=== PATIENT | male | born 1950 | race American Indian/Alaskan Native ===

== ENCOUNTER 2019-03-10 09:55 | Inpatient (IN) | payer MEDICARE ==
[~2019-03-10] VITALS: Ht 170.2 cm; Wt 62.1 kg
[~2019-03-10 09:55] MED LIST: ACEBUTCAFT PO; ALBU90OI INH; AMIT25 PO; ASPI81EC PO; Amitriptyline150 MG PO; CITA20 PO; CLON.2 PO; DIPATR PO; ESOM20 PO; FLUSAL2505 IH; HYDACE5 PO; HYDCHL12.5 PO; HYDCHL25 PO; Hydrocodone-Ap1 EA20 PO; INDO50 PO; ISOMON30 PO; KETO10 PO; LORA1 PO; LORA2 PO; Lopressor 25 mg25 MG PO; METF500 PO; METO100 PO; METO25ER PO; MORP15ER PO; MORP20L PO; MORP30ER PO; MORP60ER PO; NITR.3SL SL; OMEP20ER PO; OXYACE5T PO; OXYACE7.5T PO; PROC5 PO; PROM25 PO; Prinivil10 MG PO; RXDIPATR PO; RXHYDACE PO; RXLORA1 PO; RXOXYACE PO; RXPROM25 PO; SERT100 PO; SERT50 PO; TIOT18 IH; ZYRTEC
[2019-03-10] MEDS ORDERED: Norco 10-325 T1 EACH PO (10:17)
[2019-03-10 10:52] LABS: Ethanol (Alcohol), Blood, Med <3 mg/dL; Salicylate 7.4 mg/dL (2.8-20.0)
[2019-03-10 10:52] LABS: BASOPHILS ABSOLUTE AUTO 0.03 K/mm3 (0.00-0.23); BASOPHILS PERCENT AUTO 1 % (0-2); EOSINOPHILS ABSOLUTE AUTO 0.07 K/mm3 (0.00-0.68); EOSINOPHILS PERCENT AUTO 1 % (0-6); Hematocrit 44.3 % (37.0-53.0); Hemoglobin 14.9 g/dL (13.5-17.5); IMMATURE GRAN ABSOLUTE AUTO 0.01 K/mm3 (0.00-0.10); IMMATURE GRAN PERCENT AUTO 0 % (0-1); LYMPHOCYTES ABSOLUTE AUTO 2.46 K/mm3 (0.84-5.20); LYMPHOCYTES PERCENT AUTO 38 % (21-46); MONOCYTES ABSOLUTE AUTO 0.55 K/mm3 (0.16-1.47); MONOCYTES PERCENT AUTO 8 % (4-13); Mean Corpuscular HGB 31.8 pg (26.0-34.0); Mean Corpuscular HGB Conc 33.6 g/dL (31.5-36.5); Mean Corpuscular Volume 95 fL (80-100); Mean Platelet Volume 11.3 fL (9.1-12.4); NEUTROPHILS ABSOLUTE AUTO 3.43 K/mm3 (1.96-9.15); NEUTROPHILS PERCENT AUTO 52 % (41-73); Platelet Count 291 K/mm3 (150-400); RDW Coefficient Variation 12.7 % (11.7-14.2); RDW Standard Deviation 43.7 fL (35.1-46.3); Red Blood Cell Count 4.69 M/mm3 (4.30-5.90); White Blood Cell Count 6.55 K/mm3 (4.00-11.30)
[2019-03-10 10:56] LABS: Alanine Aminotransfer (ALT/SGP 14 U/L (12-78); Albumin, Blood 4.3 g/dL (3.4-5.0); Albumin/Globulin Ratio 1.1 (0.8-1.8); Alk Phos 79 U/L (50-136); Anion Gap 10 mmol/L (6-16); Aspartate Aminotrans (AST/SGOT 25 U/L (12-37); Bilirubin, Total 0.5 mg/dL (0.1-1.0); Blood Urea Nitrogen 20 mg/dL (8-24); Bun/Creatinine Ratio 16.3 (12.0-20.0); CO2, Blood 24 mmol/L (21-32); Calcium, Blood 9.6 mg/dL (8.5-10.1); Chloride, Blood 103 mmol/L (98-108); Creatinine, Blood 1.23 mg/dL (0.60-1.20); Globulin, Blood 3.9 g/dL (2.2-4.0); Glomerular Filtration Rate >60 (60-); Glucose, Blood 118 mg/dL (70-99); Potassium, Blood 4.2 mmol/L (3.5-5.5); Sodium, Blood 137 mmol/L (136-145); Thyroid Stimulating Hormone 0.264 uIU/mL (0.360-4.800); Total Protein, Blood 8.2 g/dL (6.4-8.2)
[2019-03-10 11:01] LABS: Acetaminophen, Random <2.0 ug/mL (10.0-30.0)
[2019-03-10] MEDS ORDERED: ALBU90OI61 INH (13:31)
[2019-03-10 14:48] LABS: Source, Urine Clean Catch
[2019-03-10 14:53] LABS: Appearance, Urine Clear (Clear); Bilirubin, Urine Neg (Neg); Blood, Urine Neg (Neg); Color, Urine Yellow (P-Yellow); Glucose Qualitative, Urine Neg (Neg); Ketones, Urine 1+ (Neg); Leukocyte Esterase, Urine Neg (Neg); Nitrite, Urine Neg (Neg); Protein, Urine Neg (Neg); Urobilinogen, Urine NORM (Normal)
--- NOTE | 2019-03-10 16:00 | NUR ---
ARRIVAL TO ICU 1505- PT ARRIVES TO ICU AT THIS TIME. HE IS OBTUNDED AND UNABLE TO COMMUNICATE. SNORING. WHEN STIMULATED WITH PAIN, HE SWINGS ARMS AROUND. BUE RESTRAINED TO KEEP PT FROM PULLING ON LINES AND ATTEMPTING TO GET OUT OF BED OR SWING AT STAFF. [place], HR 100-120. BP STABLE. ARRIVES WITH SODIIUM BICARB 150 MEQ INFUSING AT 125 ML/HR PER ORDER. LUNG SOUNDS CLEAR. SPO2 100% ON RA. WILL CONTINUE TO MONITOR.
[2019-03-10 17:19] LABS: PCO2 Arterial 41.3 mmHg (35-45); PO2 Arterial 70.4 mmHg (80-100); pH Blood Arterial 7.47 (7.35-7.45)
--- NOTE | 2019-03-10 17:22 | NUR ---
POISON CONTROL SPOKE WITH POISON CONTROL ON PHONE. THEIR RECOMENDATIONS INCLUDE: PERIODIC ABGS, EKG AT THIS TIME, SODIUM BICARB INFUSION INCREASED TO 150 ML/HR. MD GARCIA CALLED AND NOTIFIED OF RECOMENDATIONS AND T.O. GIVEN TO INCREASE IVF TO 250 ML/HR, OBTAIN EKG AND ABG. DAUGHTER BEDSIDE AND TEARFUL, STATING SHE FOUND A NOTE IN PTS GARBAGE THAT READ "I NOW. I OD.". SHE STATES HE LIVES WITH HER AND HIS AND THAT 2 WEEKS PRIOR HIS ASKED FOR A DIVORCE. SINCE THEN, HE HAS BEEN DEPRESSED. INFORMATION PROVIDED BY FAMILY WAS PASSED ON TO MD GARCIA AND HIGH RISK SUICIDE PRECAUTIONS INITIATED.
[2019-03-10 18:24] LABS: Alanine Aminotransfer (ALT/SGP 13 U/L (12-78); Albumin, Blood 3.5 g/dL (3.4-5.0); Albumin/Globulin Ratio 1.1 (0.8-1.8); Alk Phos 62 U/L (50-136); Anion Gap 5 mmol/L (6-16); Aspartate Aminotrans (AST/SGOT 23 U/L (12-37); Bilirubin, Total 0.4 mg/dL (0.1-1.0); Blood Urea Nitrogen 16 mg/dL (8-24); Bun/Creatinine Ratio 15.7 (12.0-20.0); CO2, Blood 30 mmol/L (21-32); Calcium, Blood 8.4 mg/dL (8.5-10.1); Chloride, Blood 107 mmol/L (98-108); Creatinine, Blood 1.02 mg/dL (0.60-1.20); Globulin, Blood 3.1 g/dL (2.2-4.0); Glomerular Filtration Rate >60 (60-); Glucose, Blood 137 mg/dL (70-99); Magnesium, Blood 1.7 mg/dL (1.6-2.4); Potassium, Blood 3.5 mmol/L (3.5-5.5); Sodium, Blood 142 mmol/L (136-145); Total Protein, Blood 6.6 g/dL (6.4-8.2)
--- NOTE | 2019-03-10 18:42 | NUR ---
SHIFT SUMMARY PT ARRIVED TO ICU AT 1500 TODAY. SINCE THEN, HE HAS BEEN SLEEPING WITH INTERMITTENT EPISODES OF BEING AWAKE AND CONFUSED AND YELLING INCOMPREHENSIBLE, GARBLED SPEECH. NO S/S PAIN. SEE NOTE REGARDING POISON CONTROL AND NEW ORDERS. EKG COMPLETED THIS AFTERNOON. SEE NOTE ABOUT DISCUSSION WITH FMAILY THIS AFTERNOON. SODIUM BICARB REMAINS INFUSING. CMP, ABG, AND MAGNESIUM DRAWN RECENTLY FOR MONITORING. WILL GIVE BEDSIDE, HANDOFF REPORT TO NOC RN.
--- NOTE | 2019-03-10 19:00 | NUR ---
ASSUMING CARE OF PT AT THIS TIME. PT REPORT RECEIVED AT BEDSIDE WITH OFFGOING NURSE, FILOMENA AGUILAR. PT LAYING IN BED, SLEEPING UPON ENTERING THE ROOM. VS STABLE - SEE VS FS. PT DOES NOT APPEAR TO BE IN DISTRESS AT THIS TIME. WILL REVIEW PLAN OF CARE.
--- NOTE | 2019-03-10 19:15 | NUR ---
ASSESSMENT PT FLAT, WITHDRAWN, DROWSY, LETHARGIC, QUICKLY FALLS BACK ASLEEP WITH DECREASED STIMULI, DECREASED LOC. PT OCC PULLS AT BILAT WRIST RESTRAINTS, AGITATED, RESTLESS IN BED, ATTEMPTING TO HIT AND GRAB AT STAFF ESPECIALLY WITH INCREASED STIMULI. OTHERWISE, PT CALM AND SLEEPING IN BED. PT RESPONDS TO VERBAL AND PAINFUL STIMULI, OCC SPONT OPENING EYES, A&O TO SELF AND PLACE, UNABLE TO STATE TIME/DATE/EVENT, ABLE TO ANSWER FEW QUESTIONS, SLURRED SPEECH, INCOMPREHENSIBLE SPEECH. SI PRECAUTIONS IN PLACE D/T OD. SENSATION INTACT. PT UNABLE TO ANSWER IF HE IS EXPERIENCING N/T TO EXTRMETIES. PT WALSH. SLIGHT WEAKNESS NOTED. PT REPOSITIONS SELF IN BED. NO S/SX OF PAIN/DISCOMFORT NOTED. PT DENIES PAIN/DISCOMFORT. LUNGS CLEAR. PT ON RA. OXY SAT >95%. RR 18. DENIES SOB. NO COUGHING. SNORES. AFEBRILE. NSR. HR 90'S. BP STABLE - SEE VS FS. STRONG RADIAL AND PEDAL PULSES. FAINT TIBIAL PULSE. WARM, PINK, DRY SKIN. LOITION APPLIED. HYPOACTIVE BT X4 QUADRATNS. ABD MILD DIST, SOFT, NONTENDER. NO N/V. NO BM. NPO D/T DEC LOC. F/C: CLEAR, YELLOW. PIV X2. SODIUM BICARB 150 MEQ AT 250 ML/HR. PT'S DAUGHTER (MYNOR) AND SPOUSE AT BEDSIDE. PT'S DAUGHTER CRYING AT BEDSIDE. PT'S DAUGHTER STATED THAT THE PT'S OD WAS INTENTIONAL, BECAUSE SHE FOUND A SUIDICE NOTE IN THE TRASH AT HOME. PT'S DAUGHTER FEELS THAT THE PT'S OD WAS HER FAULT, BECAUST SHE IS THE PRIMARY CAREGIVER FOR THE PT. PT'S DAUGHTER REQUESTED ADDITIONAL INFORMATION REGARDING ASSISTED LIVING OR HOME HEALTH SERVICES. SOCIAL SERVICE CONSULT ORDERED.
--- NOTE | 2019-03-10 20:20 | NUR ---
POISON CONTROL SODIUM BICARBONATE 150 MEQ @ 250 ML/HR ALMOST COMPLETED INFUSING. CALLED POISON CONTROL AT THIS TIME FOR RECOMMENDATIONS. UPDATED POISON CONTROL OF PT'S CONDITION, LABS, AND EKG. POISON CONTROL RECOMMENDED TO CONT SODIUM BICARBONATE 150 MEQ @ 250 ML/HR. POISON CONTROL REQUESTED ADDITIONAL ABG AND EKG TO BE COMPLETED AT 2230. WILL CALL POISON CONTROL WITH RESULTS.
[2019-03-10 23:02] LABS: PO2 Arterial 70.9 mmHg (80-100); pH Blood Arterial 7.53 (7.35-7.45)
--- NOTE | 2019-03-10 23:20 | NUR ---
PT LEEROY / POISON CONTROL PT FLAT, WITHDRAWN, LESS DROWSY, LESS LETHARGIC, FALLS BACK ASLEEP WITH DECREASED STIMULI, LESS AGITATED, LESS RESTLESS, NO LONGER ATTEMPTING TO HIT AND GRAB AT STAFF, RESPONDS TO VERBAL AND PAINFUL STIMULI, SPONT OPENS EYES, A&O X4, FOLLOWS COMMANDS, SLOW TO RESPOND, LESS SLURRED AND INCOMPREHENSIBLE SPEECH, ANSWERSING MORE QUESTIONS, LESS CONFUSED. BILAT WRIST RESTRAINTS REMOVED. MAINTAINING SI PRECAUTIONS. PT DENIES SI. PT DENIES ATTEMPTED OD. PT STATED, "I JUST WANTED THE MIGRAINE TO GO AWAY, SO I TOOK SOME AMITRIPTYLINE". LESS TREMORS NOTED. SENSATION INTACT BLE'S. PT C/O CHRONIC N/T TO FINGERS ON BILAT HANDS. VS STABLE - SEE VS FS. ABG COMPLETED. EKG COMPLETED. CALLED POISON CONTROL AT THIS TIME. UPDATED POISON CONTROL OF PT'S CONDITION, LAGS, AND EKG RESULTS. POISON CONTROL INSTRUCTED TO CONT SODIUM BICARBONATE 150 MEQ AT 250 ML/HR AT THIS TIME. WAITNG FOR PHONE CALL BACK FROM POISON CONTROL AT THIS TIME.
--- NOTE | 2019-03-10 23:30 | NUR ---
POISON CONTROL POISON CONTROL CALLED ICU AT THIS TIME. POISON CONTROL INSTRUCTED TO STOP SODIUM BICARBONATE DRIP AT THIS TIME AND REPEAT EKG 1 HR AFTER SODIUM BICARBOANTE DRIP IS ON STANDBY. SODIUM BICARBONATE ON STANDBY AT THIS TIME. WILL COMPLETE REPEAT EKG. WILL CONTACT POISON CONTROL WITH REPEAT EKG RESULTS.
--- NOTE | 2019-03-11 01:00 | NUR ---
POISON CONTROL SODIUM BICARBONATE DRIP ON STANDBY X1 HR. REPEAT EKG COMPLETED 1 HR AFTER SODIUM BICARBONATE DRIP HAS BEEN ON STANDBY. CALLED POISON CONTROL AT THIS TIME. UPDATED POISON CONTROL ABOUT PT'S CONDITION, REPEAT EKG, AND VS (SEE VS FS). POISON CONTROL INSTRUCTED TO D/C SODIUM BICARBONATE DRIP FROM EMAR. POISON CONTROL INSTRUCTED TO CALL POISON CONTROL IF MAP <65.
--- NOTE | 2019-03-11 01:15 | NUR ---
DR. CABA CALLED DR. CABA AT THIS TIME. UPDATED DR. CABA OF PT'S STATUS, VS (SEE VS FS), AND POISON CONTROL'S RECOMMENDATIONS. DR. CABA INSTRUCTED TO MAINTAIN NPO STATUS AND ORDERED NS AT 75 ML/HR X1 BAG. DR. CABA AGREES WITH D/C SODIUM BICARBONATE DRIP. WAITING FOR VERIFICATION OF MEDICATION FROM PHARMACY AT THIS TIME.
[2019-03-11 04:04] LABS: BASOPHILS ABSOLUTE AUTO 0.03 K/mm3 (0.00-0.23); BASOPHILS PERCENT AUTO 0 % (0-2); EOSINOPHILS PERCENT AUTO 1 % (0-6); Hematocrit 39.5 % (37.0-53.0); Hemoglobin 13.2 g/dL (13.5-17.5); IMMATURE GRAN ABSOLUTE AUTO 0.02 K/mm3 (0.00-0.10); IMMATURE GRAN PERCENT AUTO 0 % (0-1); LYMPHOCYTES ABSOLUTE AUTO 3.21 K/mm3 (0.84-5.20); LYMPHOCYTES PERCENT AUTO 37 % (21-46); MONOCYTES ABSOLUTE AUTO 0.54 K/mm3 (0.16-1.47); MONOCYTES PERCENT AUTO 6 % (4-13); Mean Corpuscular HGB 31.5 pg (26.0-34.0); Mean Corpuscular HGB Conc 33.4 g/dL (31.5-36.5); Mean Corpuscular Volume 94 fL (80-100); NEUTROPHILS ABSOLUTE AUTO 4.89 K/mm3 (1.96-9.15); NEUTROPHILS PERCENT AUTO 56 % (41-73); Platelet Count 250 K/mm3 (150-400); RDW Coefficient Variation 12.4 % (11.7-14.2); RDW Standard Deviation 43.2 fL (35.1-46.3); Red Blood Cell Count 4.19 M/mm3 (4.30-5.90); White Blood Cell Count 8.79 K/mm3 (4.00-11.30)
[2019-03-11 04:20] LABS: Anion Gap 7 mmol/L (6-16); Blood Urea Nitrogen 11 mg/dL (8-24); Bun/Creatinine Ratio 11.5 (12.0-20.0); CO2, Blood 32 mmol/L (21-32); Calcium, Blood 8.5 mg/dL (8.5-10.1); Chloride, Blood 102 mmol/L (98-108); Creatinine, Blood 0.95 mg/dL (0.60-1.20); Glomerular Filtration Rate >60 (60-); Glucose, Blood 96 mg/dL (70-99); Magnesium, Blood 1.8 mg/dL (1.6-2.4); Potassium, Blood 3.2 mmol/L (3.5-5.5); Sodium, Blood 141 mmol/L (136-145)
--- NOTE | 2019-03-11 05:00 | NUR ---
SHIFT ASSESSMENT NO ACUTE CHANGES NOTED T/O SHIFT. PT SLEPT T/O SHIFT. PT FLAT, WITHDRAWN, LESS DROWSY, LESS LETHARGIC, FALLS BACK ASLEEP WITH DEC STIMULI, LESS AGITATED, LESS RESTLESS, NO LONGER ATTEMPTING TO HIT AND GRAB AT STAFF, RESOPDNS TO VERBAL AND PAINFUL STIMULI, SPONT OPENS EYES, A&O X4, FOLLOWS COMMANDS, SLOW TO RESOND, LESS SLURRED AND INCOMPREHENSIBLE SPEECH, ANSWERING MOST QUESTIONS, LESS CONFUSED. NO BILAT WRIST RESTRAINTS. MAINTAINED SI PRECAUTIONS. PT CONT TO DENY SI T/O SHIFT. SENSATION INTACT BLE'S. PT C/O CHRONIC N/T TO FINGERS ON BILAT HANDS. PT WALSH. SLIGHT WEAKNESS NOTED. PT REPOSITIONS SELF IN BED. NO S/SX OF PAIN/DISCOMFORT NOTED. PT DENIED PAIN/DISCOMFORT. PT'S FAMILY LEFT EARLIER IN SHIFT AND PLANNING TO RETURN THIS AM. LUNGS CLEAR. PT ON RA. OXY SAT >90%. RR 14 TO 20'S. DENIED SOB. NO COUGHING. SNORES. AFEBRILE. NSR TO ST. HR 70'S TO 120'S. BP STABLE - SEE VS FS. STRONG RADIAL AND PEDAL PULSES. FAINT TIBIAL PULSES. WARM, PINK, DRY SKIN. HYPOACTIVE BT X4 QUADRANTS. ABD MILD DIST, SOFT, NONTENDER. NO N/V. NO BM. NPO D/T DEC LOC. F/C: CLEAR YELLOW. PIV X2. NS AT 75 ML/HR X1 BAG INFUSING AT THIS TIME. WILL CONT TO MONITOR PT AND WILL PROVIDE BEDSIDE REPORT TO ONCOMING NURSE THIS AM.
--- NOTE | 2019-03-11 06:06 | NUR ---
DR. ROSALES CABA IN ICU AT THIS TIME. INFORMED DR. CABA OF AM LABS. DR. CABA ORDERED KCL 40 MEQ IVPB. WAITING FOR MEDICATION FROM PHARMACY AT THIS TIME.
--- NOTE | 2019-03-11 09:04 | NUR ---
PT LAYING IN BED AWAKE SPEAKING CLEARLY. STATES HE WAS JUST TRYING TO TREAT HIS H/A WITH THE MEDICATION HE TOOK. A/OX3, PLEASANT AND COOPERATIVE DAUGHTER WAS IN TO SEE HIM AND HE BECAME TEARFUL. HE IS DECLINING TO SEE VISITORS FROM HIS DAUGHTERS MANDAEN. LUNGS ARE CLEAR IN UPPER KINNEY, COURSE IN BASES, HAS A PRODUCTIVE COUGH OF REPORTED BLACK SPUTUM, IS ON R/A AT THIS TIME, HRR, HEART MONITOR IN PLACE RUNNING ST PER MONITOR, IN THE ONETEENS, SEE STRIP, NO EDEMA NOTED, IV SITES ARE CLEAR AND PATENT, BTX4, ABD FLAT SOFT NONTENDER, ENGLISH CATH IN PLACE WILL REMOVE TODAY, SKIN C/W/D, LORAINE, CARLOS, CALL LIGHT IN REACH.
--- NOTE | 2019-03-11 12:14 | NUR ---
visitors in room, pt affect is better. denies complaints at this time. call light in reach.
--- NOTE | 2019-03-11 14:44 | NUR ---
PT WAS VISITING WITH DAUGHTER AND ANOTHER NURSE, HE BECAME VERY UPSET MOSTLY DUE TO HIS H/A AND IS ATTEMPTING TO PULL OUT HIS IVS', STATES HE IS GOING TO LEAVE, AFTER THIS NURSE SPOKE TO HIM HE CALMED DOWN, CALL TO DR. GARCIA FOR SOMETHING FOR HIS H/A. RECIEVED ORDER FOR TORADAL AND [place], SHE WANTS TO TRY THE TORADAL FIRST, THIS WAS GIVEN WELL AN ICE PACK TO HIS FORHEAD. CALL LIGHT IN REACH.
--- NOTE | 2019-03-11 15:25 | NUR ---
removed clements cath intact. pt tolerated. resting in bed with ice pack on head. no further complaints. call light in reach.
--- NOTE | 2019-03-11 18:14 | NUR ---
PT DOING WELL, IN [facility] TONIGHT, WILL BE GOING TO A INPT FACILITY HE STILL FEELS SUICIDAL. NO FURTHER CHANGES THIS SHIFT. CALL LIGHT IN REACH.
--- NOTE | 2019-03-11 19:30 | NUR ---
[place] of Care: Patient alert and oriented, sitting upright in bed, watching tv. Denies suicidal ideations at this time, states "I was never trying to kill myself, just was trying to get rid of my headache". Calm and cooperative with staff, but appears slightly agitated about being in hospital and on 2MD hold. Civil rights read to patient, but he refuses to sign paper. C/o headache, but denies any other pain, plan to given prn [place]. Denies dyspnea or SOB, O2-98-100% on RA, VSS. Peripheral IV x2 patent and intact. [place] cath D/C'd on day shift, denies need to void at this time, will continue to monitor and bladder scan if indicated. High risk suicide safety checklist complete, will complete q4hr. Call light in reach, makes needs known. Will continue to monitor for pain, safety, comfort.
[2019-03-12 04:02] LABS: BASOPHILS ABSOLUTE AUTO 0.03 K/mm3 (0.00-0.23); BASOPHILS PERCENT AUTO 1 % (0-2); EOSINOPHILS ABSOLUTE AUTO 0.09 K/mm3 (0.00-0.68); EOSINOPHILS PERCENT AUTO 1 % (0-6); Hematocrit 35.5 % (37.0-53.0); Hemoglobin 11.8 g/dL (13.5-17.5); IMMATURE GRAN PERCENT AUTO 0 % (0-1); LYMPHOCYTES ABSOLUTE AUTO 3.68 K/mm3 (0.84-5.20); LYMPHOCYTES PERCENT AUTO 57 % (21-46); MONOCYTES ABSOLUTE AUTO 0.43 K/mm3 (0.16-1.47); MONOCYTES PERCENT AUTO 7 % (4-13); Mean Corpuscular HGB 31.9 pg (26.0-34.0); Mean Corpuscular HGB Conc 33.2 g/dL (31.5-36.5); Mean Corpuscular Volume 96 fL (80-100); Mean Platelet Volume 11.2 fL (9.1-12.4); NEUTROPHILS ABSOLUTE AUTO 2.21 K/mm3 (1.96-9.15); NEUTROPHILS PERCENT AUTO 34 % (41-73); Platelet Count 229 K/mm3 (150-400); RDW Coefficient Variation 12.8 % (11.7-14.2); RDW Standard Deviation 44.9 fL (35.1-46.3); White Blood Cell Count 6.44 K/mm3 (4.00-11.30)
[2019-03-12 04:20] LABS: Anion Gap 5 mmol/L (6-16); Blood Urea Nitrogen 16 mg/dL (8-24); Bun/Creatinine Ratio 13.8 (12.0-20.0); CO2, Blood 31 mmol/L (21-32); Calcium, Blood 8.4 mg/dL (8.5-10.1); Chloride, Blood 104 mmol/L (98-108); Creatinine, Blood 1.16 mg/dL (0.60-1.20); Glomerular Filtration Rate >60 (60-); Glucose, Blood 100 mg/dL (70-99); Potassium, Blood 3.7 mmol/L (3.5-5.5); Sodium, Blood 140 mmol/L (136-145)
--- NOTE | 2019-03-12 05:56 | NUR ---
Shift Summary: Patient slept on/off throughout shift. Continues to deny suicidal ideations, remains calm and cooperative with staff. C/o headache pain effectively managed with prn [place] x2, no other c/o pain. Denies dyspnea/SOB, VSS. Stood at bedside with staff assistance x1, very weak and unsteady on feet. Peripheral IV's x2 remains patent and intact. x1 75ml void early this shift, no other voids. Patient denies need to void, bladder soft and non-distended, denies pain/discomfort with palpation. Bladder scan showed 150-200ml. Call light in reach, makes needs known. Will continue to monitor for pain, comfort, safety.
--- NOTE | 2019-03-12 08:00 | NUR ---
ASSUMED CARE ASSUMED CARE OF PT AT 0700. REPORT RECEIVED FROM LAUREN NATHAN. PT AWAKE, ALERT, AND ORIENTED. PT PLEASANT AND COOPERATIVE WITH CARE, DENIES ANY SUICIDAL THOUGHTS OR IDEATIONS, STATES HE WAS "TRYING TO TAKE CARE OF THIS HEADACHE". PT REPORTS ONGOING 9-10/10 HEADACHE PAIN, ALSO REPORTS SOME "HEARTBURN", OTHERWISE DENIES PAIN OR DISCOMFORT. PT REPORTS POOR APPETITE FOR LAST 2-3 DAYS, ALSO STATES WHENEVER HE DRINKS ANY WATER HE GETS A "METALLIC TASTE" IN HIS MOUTH. PT'S VITAL SIGNS STABLE, MONITOR SHOWS SINUS RHYTHM, SPO2 100% ON ROOM AIR. PT IS MEDICAL STATUS WITHOUT TELEMETRY, IS MEDICALLY STABLIZED, AWAITING PLACEMENT AT INPATIENT PSYCH FACILITY AT THIS TIME. PT IS ON 2MD HOLD, SUICIDE PRECAUTIONS, AND CAMERA MONITORING PER ORDERS. PT USING CALL LIGHT APPROPRIATELY FOR ANY NEEDS. WILL CONTINUE TO MONITOR CLOSELY.
--- NOTE | 2019-03-12 09:38 | NUR ---
COMPASS WORKER HERE WITH PT.
--- NOTE | 2019-03-12 10:08 | NUR ---
POISON CONTROL CALLED FOR UPDATE ON PT. THEY STATE THEY WILL CLOSE THEIR CASE ON THIS PT NO FURTHER MEDICAL MANAGEMENT IS NEEDED.
--- NOTE | 2019-03-12 14:15 | NUR ---
REPORT CALLED TO CHRIS PRO RN TO ASSUME CARE OF PT. TRANSFERRED VIA WHEELCHAIR TO [facility] WITH ASSIST OF PCT. CAMERA MONITORS UPDATED.
--- NOTE | 2019-03-12 14:36 | NUR ---
PATIENT TRANSFER THE PATIENT WAS TRANSFERRED UP TO ROOM #353 FROM ICU #12, AFTER REPORT WAS CALLED UP TO THE FLOOR. THE PATIENT IS ON A TWO MD HOLD AND IS ON SI WATCH. THE [facility] STAFF WAS CALLED TO VARIFY THAT THE PATIENT COULD BE SEEN. THE IS PLEASANT TO VISIT WITH. THE PATIENT ARRIVED ON THE FLOOR AT 1430.
--- NOTE | 2019-03-12 18:39 | NUR ---
PATIENT DISCHARGE THE PATIENT WAS DISCHARGED HOME WITH HIS SPOUSE AFTER DISCHARGE INSTRUCTIONS WERE GIVEN TO THE PATIENT. THE PATIENT LEFT THE HOSPITAL WITHOUT CONCERN OR COMPLAINT.
== END 2019-03-12 18:19 | disposition home or self-care (01) | DRG 917 ==
LOC: ER 09:55 → ERHOLD 13:15 → ICUW 13:15 → MEDS 03-12 14:11
PROVIDERS: Emergency Medicine; Internal Medicine; ADMIT Family Medicine
DX: T43.011A Poisoning by tricyclic antidepressants, accidental (unintentional), initial encounter (principal); G92 Toxic encephalopathy; N17.9 Acute kidney failure, unspecified; I95.9 Hypotension, unspecified; I10 Essential (primary) hypertension; E11.9 Type 2 diabetes mellitus without complications; K21.9 Gastro-esophageal reflux disease without esophagitis; R94.31 Abnormal electrocardiogram [ECG] [EKG]; F17.210 Nicotine dependence, cigarettes, uncomplicated; I25.10 Atherosclerotic heart disease of native coronary artery without angina pectoris; J44.9 Chronic obstructive pulmonary disease, unspecified; E87.6 Hypokalemia; G89.29 Other chronic pain; G43.909 Migraine, unspecified, not intractable, without status migrainosus
CPT/HCPCS: 36415; 36600; 51702; 70450; 71046; 80048; 80053; 81003; 82803; 82947; 83735; 84439; 84443; 85025; 93005; 93010; 94640; 96361-59; 96365-59; 96375-59; 96376-59; 99285-25; A9270-GY; G0480; J1650; J1885; J2060; J3475; J3480; J7030; J7070

== ENCOUNTER 2019-04-11 09:01 | Inpatient (IN) | payer MEDICARE ==
[~2019-04-11] VITALS: Ht 177.8 cm; Wt 64.0 kg
[~2019-04-11 09:01] MED LIST changes: +ALBU90OI61 INH; +Norco 10-325 T1 EACH PO
[2019-04-11 09:27] LABS: PCO2 Arterial 32.1 mmHg (35-45); PO2 Arterial 84.9 mmHg (80-100); pH Blood Arterial 7.45 (7.35-7.45)
[2019-04-11 09:34] LABS: BASOPHILS ABSOLUTE AUTO 0.02 K/mm3 (0.00-0.23); BASOPHILS PERCENT AUTO 0 % (0-2); EOSINOPHILS ABSOLUTE AUTO 0.04 K/mm3 (0.00-0.68); EOSINOPHILS PERCENT AUTO 1 % (0-6); Hematocrit 42.4 % (37.0-53.0); Hemoglobin 14.3 g/dL (13.5-17.5); IMMATURE GRAN ABSOLUTE AUTO 0.01 K/mm3 (0.00-0.10); IMMATURE GRAN PERCENT AUTO 0 % (0-1); LYMPHOCYTES ABSOLUTE AUTO 2.03 K/mm3 (0.84-5.20); LYMPHOCYTES PERCENT AUTO 31 % (21-46); MONOCYTES ABSOLUTE AUTO 0.48 K/mm3 (0.16-1.47); MONOCYTES PERCENT AUTO 7 % (4-13); Mean Corpuscular HGB 31.5 pg (26.0-34.0); Mean Corpuscular HGB Conc 33.7 g/dL (31.5-36.5); Mean Corpuscular Volume 93 fL (80-100); NEUTROPHILS ABSOLUTE AUTO 4.01 K/mm3 (1.96-9.15); NEUTROPHILS PERCENT AUTO 61 % (41-73); Platelet Count 254 K/mm3 (150-400); RDW Coefficient Variation 12.4 % (11.7-14.2); RDW Standard Deviation 42.6 fL (35.1-46.3); Red Blood Cell Count 4.54 M/mm3 (4.30-5.90); White Blood Cell Count 6.59 K/mm3 (4.00-11.30)
[2019-04-11 09:52] LABS: Acetaminophen, Random 11.9 ug/mL (10.0-30.0); Ethanol (Alcohol), Blood, Med <3 mg/dL; Salicylate 2.7 mg/dL (2.8-20.0)
[2019-04-11 09:56] LABS: Alanine Aminotransfer (ALT/SGP 21 U/L (12-78); Albumin, Blood 3.9 g/dL (3.4-5.0); Albumin/Globulin Ratio 1.2 (0.8-1.8); Alk Phos 94 U/L (50-136); Anion Gap 9 mmol/L (6-16); Aspartate Aminotrans (AST/SGOT 24 U/L (12-37); Bilirubin, Total 0.8 mg/dL (0.1-1.0); Blood Urea Nitrogen 13 mg/dL (8-24); Bun/Creatinine Ratio 15.3 (12.0-20.0); CO2, Blood 23 mmol/L (21-32); Chloride, Blood 108 mmol/L (98-108); Creatinine, Blood 0.85 mg/dL (0.60-1.20); Globulin, Blood 3.3 g/dL (2.2-4.0); Glomerular Filtration Rate >60 (60-); Glucose, Blood 169 mg/dL (70-99); Potassium, Blood 3.8 mmol/L (3.5-5.5); Sodium, Blood 140 mmol/L (136-145); Total Protein, Blood 7.2 g/dL (6.4-8.2)
[2019-04-11 11:06] LABS: Source, Urine Catheter
[2019-04-11 11:11] LABS: Bilirubin, Urine Neg (Neg); Blood, Urine 1+ (Neg); Glucose Qualitative, Urine Neg (Neg); Ketones, Urine 3+ (Neg); Leukocyte Esterase, Urine Neg (Neg); Nitrite, Urine Neg (Neg); Protein, Urine 1+ (Neg); Urobilinogen, Urine NORM (Normal)
[2019-04-11 11:17] LABS: Appearance, Urine Clear (Clear); Color, Urine Yellow (P-Yellow)
[2019-04-11 11:19] LABS: White Blood Cells, Urine 0-2 /hpf (0-5)
[2019-04-11 11:20] LABS: Bacteria Rare /hpf; Red Blood Cells, Urine 0-2 /hpf (0-2); Squamous Epithelial Cells Rare /hpf (Few)
[2019-04-11 11:27] LABS: U Amphetamine Screen Not Detected; U Barbituate Screen Not Detected; U Benzodiazapine Screen Not Detected; U Buprenorphine Screen Not Detected; U Cannabinoids Screen DETECTED; U Cocaine Screen Not Detected; U Methadone Screen Not Detected; U Methamphetamine Screen Not Detected; U Opiates Screen DETECTED; U Oxycodone Screen Not Detected; U Phencyclidine Screen Not Detected; U Propoxyphene Screen Not Detected
[2019-04-11 14:08] LABS: Anion Gap 12 mmol/L (6-16); Blood Urea Nitrogen 11 mg/dL (8-24); Bun/Creatinine Ratio 18.6 (12.0-20.0); CO2, Blood 29 mmol/L (21-32); Calcium, Blood 7.7 mg/dL (8.5-10.1); Chloride, Blood 107 mmol/L (98-108); Creatinine, Blood 0.59 mg/dL (0.60-1.20); Glomerular Filtration Rate >60 (60-); Glucose, Blood 174 mg/dL (70-99); Potassium, Blood 3.7 mmol/L (3.5-5.5); Sodium, Blood 148 mmol/L (136-145)
[2019-04-11 14:27] LABS: Base Excess Venous 4.3 mmol/L; Bicarbonate Venous 27.3 mmol/L (24.0-30.0); PCO2 Venous 44.4 mmHg (38-42); PO2 Venous 42.2 mmHg (38-42); pH Blood Venous 7.42 (7.34-7.37)
[2019-04-11 17:12] LABS: Base Excess Venous 5.9 mmol/L; Bicarbonate Venous 28.5 mmol/L (24.0-30.0); PCO2 Venous 44.6 mmHg (38-42); pH Blood Venous 7.44 (7.34-7.37)
[2019-04-11 20:21] LABS: Base Excess Venous 8.2 mmol/L; Bicarbonate Venous 31.4 mmol/L (24.0-30.0); PCO2 Venous 34.3 mmHg (38-42); PO2 Venous 40.7 mmHg (38-42); pH Blood Venous 7.55 (7.34-7.37)
[2019-04-12 04:12] LABS: BASOPHILS ABSOLUTE AUTO 0.01 K/mm3 (0.00-0.23); BASOPHILS PERCENT AUTO 0 % (0-2); EOSINOPHILS ABSOLUTE AUTO 0.05 K/mm3 (0.00-0.68); EOSINOPHILS PERCENT AUTO 1 % (0-6); Hematocrit 35.7 % (37.0-53.0); Hemoglobin 11.9 g/dL (13.5-17.5); IMMATURE GRAN ABSOLUTE AUTO 0.02 K/mm3 (0.00-0.10); IMMATURE GRAN PERCENT AUTO 0 % (0-1); LYMPHOCYTES ABSOLUTE AUTO 1.82 K/mm3 (0.84-5.20); LYMPHOCYTES PERCENT AUTO 23 % (21-46); MONOCYTES ABSOLUTE AUTO 0.41 K/mm3 (0.16-1.47); MONOCYTES PERCENT AUTO 5 % (4-13); Mean Corpuscular HGB 31.3 pg (26.0-34.0); Mean Corpuscular HGB Conc 33.3 g/dL (31.5-36.5); Mean Corpuscular Volume 94 fL (80-100); Mean Platelet Volume 11.3 fL (9.1-12.4); NEUTROPHILS ABSOLUTE AUTO 5.63 K/mm3 (1.96-9.15); NEUTROPHILS PERCENT AUTO 71 % (41-73); Platelet Count 226 K/mm3 (150-400); RDW Coefficient Variation 12.4 % (11.7-14.2); White Blood Cell Count 7.94 K/mm3 (4.00-11.30)
[2019-04-12 04:38] LABS: Alanine Aminotransfer (ALT/SGP 15 U/L (12-78); Albumin, Blood 2.7 g/dL (3.4-5.0); Alk Phos 62 U/L (50-136); Anion Gap 6 mmol/L (6-16); Aspartate Aminotrans (AST/SGOT 12 U/L (12-37); Bilirubin, Total 0.3 mg/dL (0.1-1.0); Blood Urea Nitrogen 8 mg/dL (8-24); Bun/Creatinine Ratio 11.6 (12.0-20.0); CO2, Blood 32 mmol/L (21-32); Calcium, Blood 8.3 mg/dL (8.5-10.1); Chloride, Blood 107 mmol/L (98-108); Creatinine, Blood 0.69 mg/dL (0.60-1.20); Globulin, Blood 2.6 g/dL (2.2-4.0); Glomerular Filtration Rate >60 (60-); Glucose, Blood 133 mg/dL (70-99); Magnesium, Blood 1.6 mg/dL (1.6-2.4); Phosphorus, Blood 2.1 mg/dL (2.5-4.9); Potassium, Blood 2.8 mmol/L (3.5-5.5); Sodium, Blood 145 mmol/L (136-145); Total Protein, Blood 5.3 g/dL (6.4-8.2)
[2019-04-12 04:39] LABS: Alanine Aminotransfer (ALT/SGP 17 U/L (12-78); Albumin, Blood 2.6 g/dL (3.4-5.0); Alk Phos 64 U/L (50-136); Aspartate Aminotrans (AST/SGOT 14 U/L (12-37); Bilirubin, Direct <0.1 mg/dL (0.0-0.3); Bilirubin, Indirect Unable to Calculate mg/dL (0.1-0.7); Bilirubin, Total 0.4 mg/dL (0.1-1.0); Globulin, Blood 2.7 g/dL (2.2-4.0); Total Protein, Blood 5.3 g/dL (6.4-8.2)
[2019-04-12 04:44] LABS: Thyroid Stimulating Hormone 0.093 uIU/mL (0.360-4.800)
[2019-04-12 04:50] LABS: PCO2 Arterial 35.4 mmHg (35-45); PO2 Arterial 85.5 mmHg (80-100); pH Blood Arterial 7.57 (7.35-7.45)
[2019-04-12 11:41] LABS: Base Excess Venous 9.5 mmol/L; Bicarbonate Venous 31.7 mmol/L (24.0-30.0); PCO2 Venous 44.8 mmHg (38-42); PO2 Venous 42.3 mmHg (38-42); pH Blood Venous 7.48 (7.34-7.37)
[2019-04-13 03:33] LABS: BASOPHILS ABSOLUTE AUTO 0.01 K/mm3 (0.00-0.23); BASOPHILS PERCENT AUTO 0 % (0-2); EOSINOPHILS ABSOLUTE AUTO 0.07 K/mm3 (0.00-0.68); EOSINOPHILS PERCENT AUTO 1 % (0-6); Hematocrit 32.5 % (37.0-53.0); Hemoglobin 10.6 g/dL (13.5-17.5); IMMATURE GRAN ABSOLUTE AUTO 0.02 K/mm3 (0.00-0.10); IMMATURE GRAN PERCENT AUTO 0 % (0-1); LYMPHOCYTES PERCENT AUTO 42 % (21-46); MONOCYTES ABSOLUTE AUTO 0.59 K/mm3 (0.16-1.47); MONOCYTES PERCENT AUTO 9 % (4-13); Mean Corpuscular HGB 31.4 pg (26.0-34.0); Mean Corpuscular HGB Conc 32.6 g/dL (31.5-36.5); Mean Corpuscular Volume 96 fL (80-100); Mean Platelet Volume 11.2 fL (9.1-12.4); NEUTROPHILS PERCENT AUTO 48 % (41-73); Platelet Count 169 K/mm3 (150-400); RDW Coefficient Variation 13.1 % (11.7-14.2); RDW Standard Deviation 46.4 fL (35.1-46.3); Red Blood Cell Count 3.38 M/mm3 (4.30-5.90); White Blood Cell Count 6.89 K/mm3 (4.00-11.30)
[2019-04-13 03:50] LABS: Alanine Aminotransfer (ALT/SGP 14 U/L (12-78); Albumin, Blood 2.8 g/dL (3.4-5.0); Albumin/Globulin Ratio 1.1 (0.8-1.8); Alk Phos 64 U/L (50-136); Anion Gap 6 mmol/L (6-16); Aspartate Aminotrans (AST/SGOT 12 U/L (12-37); Bilirubin, Total 0.3 mg/dL (0.1-1.0); Blood Urea Nitrogen 8 mg/dL (8-24); Bun/Creatinine Ratio 9.3 (12.0-20.0); CO2, Blood 32 mmol/L (21-32); Calcium, Blood 7.9 mg/dL (8.5-10.1); Chloride, Blood 106 mmol/L (98-108); Creatinine, Blood 0.86 mg/dL (0.60-1.20); Globulin, Blood 2.6 g/dL (2.2-4.0); Glomerular Filtration Rate >60 (60-); Glucose, Blood 133 mg/dL (70-99); Sodium, Blood 144 mmol/L (136-145); Total Protein, Blood 5.4 g/dL (6.4-8.2)
[2019-04-14 05:22] LABS: BASOPHILS ABSOLUTE AUTO 0.01 K/mm3 (0.00-0.23); BASOPHILS PERCENT AUTO 0 % (0-2); EOSINOPHILS ABSOLUTE AUTO 0.16 K/mm3 (0.00-0.68); EOSINOPHILS PERCENT AUTO 3 % (0-6); Hematocrit 32.6 % (37.0-53.0); Hemoglobin 10.6 g/dL (13.5-17.5); IMMATURE GRAN ABSOLUTE AUTO 0.02 K/mm3 (0.00-0.10); IMMATURE GRAN PERCENT AUTO 0 % (0-1); LYMPHOCYTES ABSOLUTE AUTO 2.02 K/mm3 (0.84-5.20); LYMPHOCYTES PERCENT AUTO 33 % (21-46); MONOCYTES ABSOLUTE AUTO 0.49 K/mm3 (0.16-1.47); MONOCYTES PERCENT AUTO 8 % (4-13); Mean Corpuscular HGB 31.9 pg (26.0-34.0); Mean Corpuscular HGB Conc 32.5 g/dL (31.5-36.5); Mean Corpuscular Volume 98 fL (80-100); Mean Platelet Volume 11.4 fL (9.1-12.4); NEUTROPHILS ABSOLUTE AUTO 3.39 K/mm3 (1.96-9.15); NEUTROPHILS PERCENT AUTO 56 % (41-73); Platelet Count 172 K/mm3 (150-400); RDW Coefficient Variation 12.6 % (11.7-14.2); RDW Standard Deviation 45.5 fL (35.1-46.3); Red Blood Cell Count 3.32 M/mm3 (4.30-5.90); White Blood Cell Count 6.09 K/mm3 (4.00-11.30)
[2019-04-14 05:42] LABS: Albumin, Blood 2.7 g/dL (3.4-5.0); Anion Gap 3 mmol/L (6-16); Blood Urea Nitrogen 8 mg/dL (8-24); Bun/Creatinine Ratio 10.3 (12.0-20.0); CO2, Blood 30 mmol/L (21-32); Calcium, Blood 8.1 mg/dL (8.5-10.1); Chloride, Blood 109 mmol/L (98-108); Creatinine, Blood 0.78 mg/dL (0.60-1.20); Free Thyroxine 1.07 ng/dL (0.70-1.60); Glomerular Filtration Rate >60 (60-); Glucose, Blood 110 mg/dL (70-99); Phosphorus, Blood 3.2 mg/dL (2.5-4.9); Potassium, Blood 3.8 mmol/L (3.5-5.5); Sodium, Blood 142 mmol/L (136-145)
[2019-04-14 05:45] LABS: Thyroid Stimulating Hormone 0.418 uIU/mL (0.360-4.800)
== END 2019-04-15 11:10 | disposition home or self-care (01) | DRG 917 ==
LOC: DELPENDDIS → ER 09:01 → ICUW 09:36 → ICUE 09:36 → MEDS 04-13 15:14 → ENPENDDIS 04-14 15:50 → MEDS 04-14 19:50 → ENPENDDIS 04-15 09:27 → MEDS 04-15 11:10
PROVIDERS: Emergency Medicine; Internal Medicine Critical Care Medicine; ADMIT Internal Medicine
PROC: 02HV33Z Insertion of Infusion Device into Superior Vena Cava, Percutaneous Approach (ICD-10-PCS; principal; 2019-04-11)
PROC: 0BH17EZ Insertion of Endotracheal Airway into Trachea, Via Natural or Artificial Opening (ICD-10-PCS; 2019-04-11)
PROC: 5A1935Z Respiratory Ventilation, Less than 24 Consecutive Hours (ICD-10-PCS; 2019-04-11)
DX: T43.012A Poisoning by tricyclic antidepressants, intentional self-harm, initial encounter (principal); G92 Toxic encephalopathy; J96.00 Acute respiratory failure, unspecified whether with hypoxia or hypercapnia; N17.9 Acute kidney failure, unspecified; I25.10 Atherosclerotic heart disease of native coronary artery without angina pectoris; E87.6 Hypokalemia; E11.9 Type 2 diabetes mellitus without complications; J44.9 Chronic obstructive pulmonary disease, unspecified; I10 Essential (primary) hypertension; K21.9 Gastro-esophageal reflux disease without esophagitis; F17.210 Nicotine dependence, cigarettes, uncomplicated; T40.2X2A Poisoning by other opioids, intentional self-harm, initial encounter; I95.9 Hypotension, unspecified; J32.9 Chronic sinusitis, unspecified
CPT/HCPCS: 31500; 31720; 36415; 36569; 36600; 51702; 70450; 71045; 80048; 80053; 80069; 80076; 81001; 82248; 82550; 82803; 82947; 83605; 83735; 84100; 84439; 84443; 84484; 85025; 87070; 87205; 93005; 93010; 94002; 94003; 94640; 94760; 96374-59; 99291-25; C1751; C9113; G0480; J0132; J0330; J1650; J2060; J2250; J2310; J2405; J2704; J3010; J3480; J7030; J7060; J7070

== ENCOUNTER 2019-04-15 16:35 | Observation (INO) | payer MEDICARE, OTHER ==
[~2019-04-15] VITALS: Ht 170.2 cm; Wt 61.2 kg
[2019-04-15 23:19] LABS: Source, Urine Clean Catch
[2019-04-15 23:24] LABS: Bilirubin, Urine Neg (Neg); Blood, Urine Neg (Neg); Glucose Qualitative, Urine Neg (Neg); Ketones, Urine 4+ (Neg); Leukocyte Esterase, Urine Neg (Neg); Nitrite, Urine Neg (Neg); Protein, Urine Neg (Neg); Urobilinogen, Urine NORM (Normal)
[2019-04-15 23:27] LABS: Appearance, Urine Clear (Clear); Color, Urine Yellow (P-Yellow)
[2019-04-15 23:35] LABS: U Amphetamine Screen Not Detected; U Barbituate Screen DETECTED; U Benzodiazapine Screen Not Detected; U Methamphetamine Screen Not Detected
[2019-04-15 23:36] LABS: U Buprenorphine Screen Not Detected; U Cannabinoids Screen DETECTED; U Cocaine Screen Not Detected; U Methadone Screen Not Detected; U Opiates Screen DETECTED; U Oxycodone Screen Not Detected; U Phencyclidine Screen Not Detected; U Propoxyphene Screen Not Detected
[2019-04-15 23:39] LABS: BASOPHILS ABSOLUTE AUTO 0.03 K/mm3 (0.00-0.23); BASOPHILS PERCENT AUTO 1 % (0-2); EOSINOPHILS PERCENT AUTO 2 % (0-6); Hematocrit 36.4 % (37.0-53.0); Hemoglobin 11.7 g/dL (13.5-17.5); IMMATURE GRAN ABSOLUTE AUTO 0.01 K/mm3 (0.00-0.10); IMMATURE GRAN PERCENT AUTO 0 % (0-1); LYMPHOCYTES ABSOLUTE AUTO 1.72 K/mm3 (0.84-5.20); LYMPHOCYTES PERCENT AUTO 29 % (21-46); MONOCYTES ABSOLUTE AUTO 0.48 K/mm3 (0.16-1.47); MONOCYTES PERCENT AUTO 8 % (4-13); Mean Corpuscular HGB 31.9 pg (26.0-34.0); Mean Corpuscular HGB Conc 32.1 g/dL (31.5-36.5); Mean Corpuscular Volume 99 fL (80-100); Mean Platelet Volume 11.7 fL (9.1-12.4); NEUTROPHILS ABSOLUTE AUTO 3.64 K/mm3 (1.96-9.15); NEUTROPHILS PERCENT AUTO 61 % (41-73); Platelet Count 210 K/mm3 (150-400); RDW Coefficient Variation 12.5 % (11.7-14.2); RDW Standard Deviation 45.3 fL (35.1-46.3); Red Blood Cell Count 3.67 M/mm3 (4.30-5.90); White Blood Cell Count 5.98 K/mm3 (4.00-11.30)
[2019-04-16 00:09] LABS: Ethanol (Alcohol), Blood, Med <3 mg/dL; Salicylate 2.5 mg/dL (2.8-20.0); Thyroxine (T4) 11.8 ug/dL (4.5-12.1)
[2019-04-16 00:10] LABS: Alanine Aminotransfer (ALT/SGP 22 U/L (12-78); Albumin, Blood 3.4 g/dL (3.4-5.0); Alk Phos 85 U/L (50-136); Anion Gap 10 mmol/L (6-16); Aspartate Aminotrans (AST/SGOT 32 U/L (12-37); Bilirubin, Total 0.6 mg/dL (0.1-1.0); Blood Urea Nitrogen 10 mg/dL (8-24); Bun/Creatinine Ratio 10.6 (12.0-20.0); CO2, Blood 25 mmol/L (21-32); Calcium, Blood 8.6 mg/dL (8.5-10.1); Chloride, Blood 108 mmol/L (98-108); Creatinine, Blood 0.94 mg/dL (0.60-1.20); Globulin, Blood 3.4 g/dL (2.2-4.0); Glomerular Filtration Rate >60 (60-); Glucose, Blood 79 mg/dL (70-99); Potassium, Blood 3.6 mmol/L (3.5-5.5); Sodium, Blood 143 mmol/L (136-145); Total Protein, Blood 6.8 g/dL (6.4-8.2)
[2019-04-16 00:15] LABS: Acetaminophen, Random <2.0 ug/mL (10.0-30.0); Thyroid Stimulating Hormone 0.596 uIU/mL (0.360-4.800)
[2019-04-18 22:00] LABS: Adenovirus F 40/41 Not Detected (NOT DETECT); Astrovirus Not Detected (NOT DETECT); Campylobacter Sp Not Detected (NOT DETECT); Cryptosporidium Not Detected (NOT DETECT); Cyclospora Cayetanensis Not Detected (NOT DETECT); E. Coli O157 Not Detected (NOT DETECT); Entamoeba Histolytica Not Detected (NOT DETECT); Enteroaggregative E. coli-EAEC Not Detected (NOT DETECT); Enteropathogenic E. coli-EPEC Not Detected (NOT DETECT); Enterotoxigenic E. coli-ETEC Not Detected (NOT DETECT); Giardia Lamblia Not Detected (NOT DETECT); Norovirus GI/GII Not Detected (NOT DETECT); Plesiomonas Shigelloides Not Detected (NOT DETECT); Rotavirus A Not Detected (NOT DETECT); Salmonella Sp Not Detected (NOT DETECT); Sapovirus Not Detected (NOT DETECT); Shiga Toxin-prod E. coli-STEC Not Detected (NOT DETECT); Shigella/Enteroin E. coli-EIEC Not Detected (NOT DETECT); Vibrio Cholerae Not Detected (NOT DETECT); Vibrio Sp Not Detected (NOT DETECT); Yersinia Enterocolitica Not Detected (NOT DETECT)
[2019-04-19 11:42] LABS: Adenovirus F 40/41 Not Detected (NOT DETECT); Astrovirus Not Detected (NOT DETECT); Campylobacter Sp Not Detected (NOT DETECT); Cryptosporidium Not Detected (NOT DETECT); Cyclospora Cayetanensis Not Detected (NOT DETECT); E. Coli O157 Not Detected (NOT DETECT); Entamoeba Histolytica Not Detected (NOT DETECT); Enteroaggregative E. coli-EAEC Not Detected (NOT DETECT); Enteropathogenic E. coli-EPEC Not Detected (NOT DETECT); Enterotoxigenic E. coli-ETEC Not Detected (NOT DETECT); Giardia Lamblia Not Detected (NOT DETECT); Norovirus GI/GII Not Detected (NOT DETECT); Plesiomonas Shigelloides Not Detected (NOT DETECT); Rotavirus A Not Detected (NOT DETECT); Salmonella Sp Not Detected (NOT DETECT); Sapovirus Not Detected (NOT DETECT); Shiga Toxin-prod E. coli-STEC Not Detected (NOT DETECT); Shigella/Enteroin E. coli-EIEC Not Detected (NOT DETECT); Vibrio Cholerae Not Detected (NOT DETECT); Vibrio Sp Not Detected (NOT DETECT); Yersinia Enterocolitica Not Detected (NOT DETECT)
== END 2019-04-20 14:28 | disposition home or self-care (01) ==
LOC: ER 16:35 → EOR 16:36
PROVIDERS: Emergency Medicine; ADMIT Emergency Medicine
DX: F32.9 Major depressive disorder, single episode, unspecified (principal); F12.10 Cannabis abuse, uncomplicated; F34.1 Dysthymic disorder; F17.210 Nicotine dependence, cigarettes, uncomplicated; J44.9 Chronic obstructive pulmonary disease, unspecified; I10 Essential (primary) hypertension; K21.9 Gastro-esophageal reflux disease without esophagitis; Z88.8 Allergy status to other drugs, medicaments and biological substances; Z88.6 Allergy status to analgesic agent; Z79.899 Other long term (current) drug therapy
CPT/HCPCS: 80053; 81003; 82947; 84436; 84443; 85025; 87507; 99285; A9270; G0378; G0480

== ENCOUNTER 2020-03-30 18:02 | Inpatient (IN) | payer MEDICARE, SELFPAY ==
[~2020-03-30] VITALS: Ht 170.2 cm; Wt 67.8 kg
[2020-03-30 19:11] LABS: BASOPHILS ABSOLUTE AUTO 0.04 K/mm3 (0.00-0.23); BASOPHILS PERCENT AUTO 0 % (0-2); EOSINOPHILS ABSOLUTE AUTO 0.14 K/mm3 (0.00-0.68); EOSINOPHILS PERCENT AUTO 2 % (0-6); Hemoglobin 16.3 g/dL (13.5-17.5); IMMATURE GRAN ABSOLUTE AUTO 0.02 K/mm3 (0.00-0.10); IMMATURE GRAN PERCENT AUTO 0 % (0-1); LYMPHOCYTES ABSOLUTE AUTO 3.66 K/mm3 (0.84-5.20); LYMPHOCYTES PERCENT AUTO 41 % (21-46); MONOCYTES ABSOLUTE AUTO 0.57 K/mm3 (0.16-1.47); MONOCYTES PERCENT AUTO 6 % (4-13); Mean Corpuscular HGB 32.1 pg (26.0-34.0); Mean Corpuscular HGB Conc 33.3 g/dL (31.5-36.5); Mean Corpuscular Volume 97 fL (80-100); Mean Platelet Volume 11.5 fL (9.1-12.4); NEUTROPHILS ABSOLUTE AUTO 4.51 K/mm3 (1.96-9.15); NEUTROPHILS PERCENT AUTO 51 % (41-73); Platelet Count 275 K/mm3 (150-400); RDW Coefficient Variation 11.9 % (11.7-14.2); RDW Standard Deviation 42.6 fL (35.1-46.3); Red Blood Cell Count 5.07 M/mm3 (4.30-5.90); White Blood Cell Count 8.94 K/mm3 (4.00-11.30)
[2020-03-30 19:41] LABS: Alanine Aminotransfer (ALT/SGP 24 U/L (12-78); Albumin, Blood 4.4 g/dL (3.4-5.0); Albumin/Globulin Ratio 1.2 (0.8-1.8); Alk Phos 94 U/L (50-136); Anion Gap 4 mmol/L (6-16); Aspartate Aminotrans (AST/SGOT 22 U/L (12-37); Bilirubin, Total 0.5 mg/dL (0.1-1.0); Blood Urea Nitrogen 19 mg/dL (8-24); Bun/Creatinine Ratio 19.1 (12.0-20.0); CO2, Blood 27 mmol/L (21-32); Calcium, Blood 9.3 mg/dL (8.5-10.1); Chloride, Blood 106 mmol/L (98-108); Globulin, Blood 3.8 g/dL (2.2-4.0); Glomerular Filtration Rate >60 (60-); Glucose, Blood 102 mg/dL (70-99); Potassium, Blood 3.8 mmol/L (3.5-5.5); Sodium, Blood 137 mmol/L (136-145); Total Protein, Blood 8.2 g/dL (6.4-8.2); Troponin I <0.015 ng/mL (0.000-0.040)
--- NOTE | 2020-03-30 22:59 | NUR ---
PT ARRIVED VIA STRETCHER FROM ER; A&O X4; SELF TRANSFERED TO BED; USES CANE AT BASELINE; BP ELEVATED; MEDICATED IN ER; NSR NOTED ON TELE; O2 SATS >93 ON RA; EXP WHEEZE NOTED; PT EDUCATED FIELD MECHANIC/SITE LEAD LIGHT AND ORIENTED TO UNIT; CALL LIGHT IN REACH; BED IN LOWEST POSITION
[2020-03-31 03:11] LABS: Source, Urine Clean Catch
[2020-03-31 03:18] LABS: Bilirubin, Urine Neg (Neg); Blood, Urine 1+ (Neg); Glucose Qualitative, Urine Neg (Neg); Ketones, Urine Neg (Neg); Leukocyte Esterase, Urine Neg (Neg); Nitrite, Urine Neg (Neg); Protein, Urine Neg (Neg); Urobilinogen, Urine NORM (Normal)
[2020-03-31 03:21] LABS: Appearance, Urine Clear (Clear); Color, Urine Yellow (P-Yellow)
[2020-03-31 03:30] LABS: Bacteria Few /hpf; Red Blood Cells, Urine 0-2 /hpf (0-2); Squamous Epithelial Cells Not Seen /hpf (Few); White Blood Cells, Urine 0-2 /hpf (0-5)
[2020-03-31 03:39] LABS: U Amphetamine Screen Not Detected; U Barbituate Screen Not Detected; U Benzodiazapine Screen Not Detected; U Buprenorphine Screen Not Detected; U Cannabinoids Screen DETECTED; U Cocaine Screen Not Detected; U Methadone Screen Not Detected; U Methamphetamine Screen Not Detected; U Opiates Screen Not Detected; U Oxycodone Screen Not Detected; U Phencyclidine Screen Not Detected; U Propoxyphene Screen Not Detected
[2020-03-31 03:59] LABS: BASOPHILS ABSOLUTE AUTO 0.02 K/mm3 (0.00-0.23); BASOPHILS PERCENT AUTO 0 % (0-2); EOSINOPHILS ABSOLUTE AUTO 0.02 K/mm3 (0.00-0.68); EOSINOPHILS PERCENT AUTO 0 % (0-6); Hematocrit 45.4 % (37.0-53.0); Hemoglobin 15.1 g/dL (13.5-17.5); IMMATURE GRAN ABSOLUTE AUTO 0.03 K/mm3 (0.00-0.10); IMMATURE GRAN PERCENT AUTO 0 % (0-1); LYMPHOCYTES ABSOLUTE AUTO 2.06 K/mm3 (0.84-5.20); LYMPHOCYTES PERCENT AUTO 23 % (21-46); MONOCYTES ABSOLUTE AUTO 0.16 K/mm3 (0.16-1.47); MONOCYTES PERCENT AUTO 2 % (4-13); Mean Corpuscular HGB 31.9 pg (26.0-34.0); Mean Corpuscular HGB Conc 33.3 g/dL (31.5-36.5); Mean Corpuscular Volume 96 fL (80-100); Mean Platelet Volume 11.2 fL (9.1-12.4); NEUTROPHILS ABSOLUTE AUTO 6.86 K/mm3 (1.96-9.15); NEUTROPHILS PERCENT AUTO 75 % (41-73); Platelet Count 241 K/mm3 (150-400); RDW Coefficient Variation 11.9 % (11.7-14.2); Red Blood Cell Count 4.74 M/mm3 (4.30-5.90); White Blood Cell Count 9.15 K/mm3 (4.00-11.30)
[2020-03-31 04:17] LABS: Alanine Aminotransfer (ALT/SGP 20 U/L (12-78); Albumin, Blood 3.9 g/dL (3.4-5.0); Albumin/Globulin Ratio 1.1 (0.8-1.8); Alk Phos 79 U/L (50-136); Anion Gap 7 mmol/L (6-16); Aspartate Aminotrans (AST/SGOT 16 U/L (12-37); Bilirubin, Total 0.7 mg/dL (0.1-1.0); Blood Urea Nitrogen 15 mg/dL (8-24); Bun/Creatinine Ratio 17.9 (12.0-20.0); CO2, Blood 24 mmol/L (21-32); Calcium, Blood 8.7 mg/dL (8.5-10.1); Chloride, Blood 109 mmol/L (98-108); Creatinine, Blood 0.84 mg/dL (0.60-1.20); Globulin, Blood 3.4 g/dL (2.2-4.0); Glomerular Filtration Rate >60 (60-); Glucose, Blood 121 mg/dL (70-99); Potassium, Blood 4.3 mmol/L (3.5-5.5); Sodium, Blood 140 mmol/L (136-145); Total Protein, Blood 7.3 g/dL (6.4-8.2)
--- NOTE | 2020-03-31 07:37 | NUR ---
SHIFT SUMMARY PT A&O; VSS; BP IMPROVED FROM ARRIVAL TO UNIT; DENIES CHEST PAIN; NSR NOTED ON TELE; C/O HEADACHE 10 OF 10 PAIN; BROUGHT ICE PACK TO PT; MEDICATED PER EMAR; 25 MCG OF FENTANYL PT STATED DID NOT HAVE MUCH EFFECT; 30 MG TORADOL @ 0421; PT STATES DID NOT RELIEVE PAIN; PT USES PERSONAL CANE FOR SBA TO BATHROOM W/O DIFFICULTY; APPROXIMATELY @ 0640 PT C/O GAGGING/CHOKING; SUCTION SET UP AND PT SELF SUCTIONED SPUTUM; 2L O2 NC PUT ON PT; INSPECTED PT W/ LIGHT IN MOUTH AND SIGNIFICANT SWELLLING NOTED; TONSILS, ADENOIDS RED AND SWOLLEN RESTING ON BACK OF TONGUE; PT STATED HE COULD NOT BREATH; RT AT BEDSIDE W/ ADDITIONAL RN; MANAGER AREA NOTIFIED; NOC PROVIDER NOTIFIED, INSTRUCTED TO CONTINUE TO MONITOR PT; PT CURRENTLY BREATHING EASILY; CALL LIGHT IN REACH; BED IN LOWEST POSITION; REPORT GIVEN TO DAY SHIFT RN; ADDITIONAL ASSESSMENT OF PT W/ DAY SHIFT AND NOC RN; NO CHANGE IN SIZE / COLOR; GLANDS HAVE SIGNIFICANT SWELLING UNDER PT'S CASTRO; PT STATES HE HAS DIFFICULTY SWALLOWING; DAY SHIFT RN NOTIFIED HOSPITALIST.
--- NOTE | 2020-03-31 08:20 | NUR ---
AM NOTE... ASSUMED CARE OF PT APROX 0700. PT IS A&Ox4. PT WAS ADMITTED FOR HYPERTENSION PER NOC SHIFT RN THE PT HAD AN EPISODE OF GAGGING/CHOKING AND BEING UNABLE TO BREATH, HIS AIRWAY WAS ASSESSED AND IT WAS NOTED THAT HIS TONSILS, UVULA, ADNOIDS AND OTHER SOFT TISSUES IN HIS THROAT WERE VERY SWOLLEN. THIS RN ASSESSED THE PT WITH THE NOC SHIFT RN, PER NOC SHIFT RN THE PT'S THROAT HAS NOT IMPROVED, PT IS ON 2L NC WITH O2 SATS AT 98%, PT DENIES ANY SOB AT THIS TIME. PT DOES SAY ITS HARD TO SWALLOW HIS SPUTUM OR WATER AND HE HAS TO SWALLOW MULTIPLE TIMES TO GET IT CLEAR. THE GLANDS UNDER THE PT'S CHIN ARE ALOS VERY SWOLLEN APROX THE SIZE OF GOLF BALLS BILATTERALY. PT IS CURRENTLY NPO. DAY SHIFT PROVIDER WAS MADE AWARE AND NEW MEDICATION ORDERS OBTAINED. L/S COARSE W/EXP WHEEZES T/O. RR 20-22 EVEN AND UNLABORED. NO OTHER EDEMA NOTED ON ASSESSMENT. BT PRESENT AND HYPERACTIVE ABD SOFT AND NONTENDER TO PALP. CALL LIGHT IN REACH WILL CONTINUE TO MONITOR.
--- NOTE | 2020-03-31 10:12 | NUR ---
Echocardiogram completed.
--- NOTE | 2020-03-31 18:41 | NUR ---
SHIFT SUMMARY... NO ACUTE NEGATIVE CHANGES SINCE LAST NOTE. PT'S ANGIO EDEMA HAS DECREASED SINCE THIS AM. PT'S BP AND HR HAS BEEN STABLE UNTIL THE PT STARTED TO WALK AROUND THE ROOM. PT'S BP INCREASED TO 160 SYSTOLIC AND HR TRENDED UP TO THE 120'S. PT DENIES ANY CHEST PAIN/PRESSURE N/V OR SOB. PT HAS BEEN MEDICATED PER EMAR WITH GOOD RESULTS. CALL LIGHT IN REACH WILL CONTINUE TO MONITOR UNTIL REPORT IS GIVEN TO ONCOMING RN.
--- NOTE | 2020-04-01 06:39 | NUR ---
SHIFT SUMMARY PT A&O; VSS; DENIES CHEST PAIN; O2 SATS >93 ON RA; COARSE LUNG SOUNDS; PT INDEPENDENT IN ROOM W/ PERSONAL CANE; PT AMBULATED AROUND THE UNIT SEVERAL TIMES T/O SHIFT; PT STATES HE FEELS BETTER; SWELLING IN THROAT SLIGHTLY IMPROVED FROM PREVIOUS SHIFT; NOTED PT SMILING AND JOKING W/ STAFF; CONVERSATIONALIST W/ THIS RN; CONTINUES TO C/O HEADACHE 9 OF 10 PAIN; STATES HE NEEDS ALTERNATE FENTANYL / TORADOL TO GET RELIEF; PT CALLS APPROPRIATELY; CALL LIGHT IN REACH; BED IN LOWEST POSITION; WILL CONTINUE TO MONITOR CLOSELY UNTIL HAND OFF TO DAY SHIFT RN.
--- NOTE | 2020-04-01 08:42 | NUR ---
AM NOTE... ASSUMED CARE OF PT APROX 0700. PT IS A&Ox4 AND IND IN THE ROOM. PT WAS ADMITTED FOR HYPERTENSION, PT'S BP AND OTHER VS STABLE AT THIS TIME. ON ASSESSMENT NO SIGNS OF SWELLING NOTED TO THE PT'S THROAT THIS AM. PT DENIES ANY SWALLOWING ISSUES AT THIS TIME WELL. L/S COARSE T/O ON RA. NO EDEMA NOTED ON ASSESSMENT. CALL LIGHT IN REACH WILL CONTINUE TO MONITOR
--- NOTE | 2020-04-01 11:54 | NUR ---
PT UDPATE... REPORT CALLED TO JULEE AGUILAR. PT HAS BEEN EDUCATED ON PAIN CONTROL AND STARTED TO BECOME EMOTIONAL, STATING "NO ONE CARES THAT I AM IN PAIN." PT WAS COMFORTED AND ASSURED THAT STAFF DID CARE ABOUT HIS PAIN AND EDUCATED THE PT ON EXPECTATIONS OF NOT BEING 100% PAIN FREE. CALL LIGHT IN REACH WILL CONTINUE TO MONITOR UNTIL TRANSFER.
--- NOTE | 2020-04-01 16:18 | NUR ---
patient transferred to the floor in the 1200 hour. he is pleasant, alert and oriented independent in the room. he is currently strolling around the unit, he notes that does help his head feel better. no current concerns per patient and awaiting new orders.
--- NOTE | 2020-04-01 17:54 | NUR ---
SHIFT SUMMARY PATIENT TRANSFER FROM THE PCU TODAY. HE HAS DONE WELL, CURRENT CONCERN IS PAIN MANAGEMENT. PATIENT IS WALKING AROUND THE UNIT, AND DENIES ANY CONCERN. HE IS NOT STRUGGLING TO BREATHE, HE DOES USE A WALKER. HE IS INDEPENDENT AND DOES ASK FOR HELP APPROPRIATELY. USES HIS CALL LIGHT, AND REPORTS THAT HE KNOWS HOW TO REPORT HIS SYMPTOMS.
--- NOTE | 2020-04-02 03:57 | NUR ---
SHIFT SUMMARY PT HAS HAD NO ACUTE CHANGES THIS SHIFT, MEDICATED PER MAR FOR CONTINUING HEADACHE (-06/20), PT WALKS OFTEN T/O HALLS W/WALKER, STATES THAT DISTRACTION HELPS W/V[place] PAIN, NO OTHER C/O ANY KIND, PT BEDRESTING AT THIS TIME, CALL LIGHT IN REACH, WILL CONT TO MONITOR UNTIL REPORT GIVEN TO DAY RN.
[2020-04-02] MEDS ORDERED: NIFE60ER PO (11:52)
[2020-04-02] MEDS ORDERED: Loratadine10 MG PO (11:52)
[2020-04-02] MEDS ORDERED: PRED20 PO (11:52)
--- NOTE | 2020-04-02 11:59 | NUR ---
PT WITH NO PCP, SOFTWARE SALES MANAGER ROLANDO NOTIFIED AND PACKET GIVEN TO PT FOR [facility] TO ESTABLISH WITH A PCP. RX FAXED TO [facility] AND [facility]ES[facility] INHALHER CALLED IN PER DR SZYMANSKI.
--- NOTE | 2020-04-02 12:40 | NUR ---
DISCHARGE INSTRUCTIONS REVIEWED WITH PT. IV DC'D INTACT. HARD SCRIPT GIVEN FOR TRAMADOL. PT DC'D AT 1236, ESCORTED OUT.
== END 2020-04-02 12:36 | disposition home or self-care (01) | DRG 305 ==
LOC: ER 18:02 → PCU 18:03 → MEDS 04-01 12:15
PROVIDERS: Physician Assistant; ADMIT Internal Medicine
DX: I16.0 Hypertensive urgency (principal); G43.909 Migraine, unspecified, not intractable, without status migrainosus; J44.9 Chronic obstructive pulmonary disease, unspecified; I10 Essential (primary) hypertension; E11.9 Type 2 diabetes mellitus without complications; Z98.1 Arthrodesis status; K21.9 Gastro-esophageal reflux disease without esophagitis; Z79.84 Long term (current) use of oral hypoglycemic drugs; F17.210 Nicotine dependence, cigarettes, uncomplicated; T78.3XXA Angioneurotic edema, initial encounter; Z91.14 Patient's other noncompliance with medication regimen; T46.4X5A Adverse effect of angiotensin-converting-enzyme inhibitors, initial encounter; Y92.239 Unspecified place in hospital as the place of occurrence of the external cause
CPT/HCPCS: 36415; 70450; 71046; 80053; 81001; 84484; 85025; 85651; 86140; 87081; 87430; 93005; 93010; 93306; 93880; 96374; 96375; 96376; 99285-25; A9270-GY; J0780; J1200; J1650; J1885; J2405; J2930; J3010; J7030